=== PATIENT | female | born 1940 | race Hispanic/Latino ===

== ENCOUNTER 2019-04-10 19:08 | Emergency (ER) | payer OTHER ==
[~2019-04-10 19:08] MED LIST: ALBU18HF7 IH; AMLO5TAB9 PO; ASPI-1005 PO; ONDA4TAB10 PO; PRAV20TA4 PO
[2019-04-10] MEDS ORDERED: ASPIRIN 325 MG TABLET ONE (19:17)
[2019-04-10 19:23] LABS: BASOPHILS % (AUTO) 0.3 % (0.0-5.0); HEMATOCRIT 45.9 % (36-48); LYMPHOCYTES % (AUTO) 15.2 % (21.0-51.0); MEAN CORPUSCULAR HEMOGLOBIN 34.3 pg (27.0-33.0); MEAN CORPUSCULAR VOLUME 100.8 fL (79-99); MONOCYTES % (AUTO) 4.1 % (3.0-13.0); NEUTROPHILS % (AUTO) 80.4 % (40.0-77.0); PLATELET COUNT (AUTO) 349 K/uL (130-400); RED BLOOD CELL COUNT(AUTO) 4.56 MIL/uL (4.00-5.50); RED CELL DISTRIBUTION WIDTH 13.6 % (11.0-15.5); WHITE BLOOD COUNT (AUTO) 14.5 K/uL (4.8-10.8)
[2019-04-10 19:41] LABS: CREATININE 0.8 mg/dL (0.5-1.5); INR 1.01 (0.85-1.15); PARTIAL THROMBOPLASTIN TIME 25.1 SEC (26.3-35.5); POTASSIUM 3.5 mmol/L (3.5-5.1); PROTHROMBIN TIME 10.6 SEC (9.6-11.6)
[2019-04-10] MEDS ORDERED: IPRATROPIUM/ALBUTEROL SULFATE 3 ML SOLUTION IH ONE ×2 (19:47→19:55)
[2019-04-10] MEDS ORDERED: METHYLPREDNISOLONE SOD SUCC 125MG/2ML VIAL ONE (19:49)
[2019-04-10 20:01] LABS: ALBUMIN 3.3 g/dL (3.5-5.0); BILIRUBIN,TOTAL 0.5 mg/dL (0.2-1.0); TOTAL PROTEIN, SERUM 8.9 g/dL (6.0-8.3)
== END 2019-04-10 23:52 | disposition home or self-care (01) ==
LOC: EDH 19:08
DX: J44.1 Chronic obstructive pulmonary disease with (acute) exacerbation (principal); R07.89 Other chest pain; Z90.49 Acquired absence of other specified parts of digestive tract; Z98.890 Other specified postprocedural states
CPT/HCPCS: 36415; 71045; 80053; 82550; 83880; 84484 ×2; 85025; 85610; 85730; 93005; 94640 ×2; 96374; 99285; J2930

== ENCOUNTER 2019-04-18 15:36 | Inpatient (IN) | payer OTHER ==
[~2019-04-18] VITALS: Ht 149.9 cm; Wt 50.1 kg
[2019-04-18] MEDS ORDERED: ASPIRIN 325 MG TABLET ONE (16:04)
[2019-04-18 16:25] LABS: HEMATOCRIT 46.7 % (36-48); LYMPHOCYTES % (AUTO) 2.8 % (21.0-51.0); MEAN CORPUSCULAR HGB CONC 34.3 g/dL (32.0-36.0); MONOCYTES % (AUTO) 2.3 % (3.0-13.0); NEUTROPHILS % (AUTO) 94.9 % (40.0-77.0); NUCLEATED RED BLOOD CELLS 0.1 % (0.0-0.19); PLATELET COUNT (AUTO) 265 K/uL (130-400); RED BLOOD CELL COUNT(AUTO) 4.58 MIL/uL (4.00-5.50); WHITE BLOOD COUNT (AUTO) 18.7 K/uL (4.8-10.8)
[2019-04-18] MEDS ORDERED: SODIUM CHLORIDE 0.9% 500ML 500 ML IV ONE ×4 (16:32→20:06)
[2019-04-18 16:48] LABS: INR 1.25 (0.85-1.15); PARTIAL THROMBOPLASTIN TIME 26.6 SEC (26.3-35.5); POTASSIUM 3.5 mmol/L (3.5-5.1)
[2019-04-18] MEDS ORDERED: ONDANSETRON HCL 4 MG/2 ML VIAL ONE (16:50)
[2019-04-18 17:02] LABS: ALBUMIN 3.4 g/dL (3.5-5.0); BILIRUBIN,TOTAL 1.3 mg/dL (0.2-1.0); TOTAL PROTEIN, SERUM 8.3 g/dL (6.0-8.3)
[2019-04-18] MEDS ORDERED: METHYLPREDNISOLONE SOD SUCC 125MG/2ML VIAL ONE (18:03)
[2019-04-18] MEDS ORDERED: ALBUTEROL SULFATE 0.083% 2.5 MG/3 ML INH IH ONE (18:09)
[2019-04-18] MEDS ORDERED: CEFTRIAXONE SODIUM 1 GM ONE (18:36)
[2019-04-18] MEDS ORDERED: SODIUM CHLORIDE 0.9% 100 ML IV ONE (18:36)
[2019-04-18] MEDS ORDERED: IOHEXOL-350 75 ML VIAL IV ONE (18:55)
[2019-04-18 19:10] LABS: APPEARANCE,URINE Clear (CLEAR); BILIRUBIN,URINE Negative (NEGATIVE); COLOR,URINE Yellow (YELLOW); GLUCOSE, URINE (UA) Negative (NEGATIVE); KETONES,URINE Negative (NEGATIVE); LEUKOCYTE ESTERASE ,URINE Negative (NEGATIVE); NITRATE,URINE Negative (NEGATIVE); OCCULT BLOOD,URINE Small (NEGATIVE); PROTEIN,URINE POS 1+ mg/dL (NEGATIVE); UROBILINOGEN,URINE 0.2 mg/dL (0.2-1.0)
[2019-04-18 19:28] LABS: BACTERIA,URINE Rare /HPF (None Seen); WBC,URINE 0-1 /HPF (0-1)
[2019-04-18 19:29] LABS: MUCUS,URINE Few LPF (None Seen); SQUAMOUS EPITHELIAL CELL,UR Few /HPF (0-2)
[2019-04-18] MEDS ORDERED: AZITHROMYCIN 500MG+NS 250ML 250 ML IV ONE (20:04)
[2019-04-18] MEDS ORDERED: IPRATROPIUM/ALBUTEROL SULFATE 3 ML SOLUTION IH ONE (20:11)
[2019-04-18 20:31] LABS: ABG BASE EXCESS -1.5 mmol/L (-2.0-3.0); ABG HCO3 22.8 mmol/L (21.0-28.0); ABG OXYGEN SATURATION 94.6 % (95.0-99.0); ABG PCO2 37 mmHg (32-45)
[2019-04-18] MEDS ORDERED: ACETAMINOPHEN 325 MG TAB PO PRN (22:00)
[2019-04-18] MEDS ORDERED: ONDANSETRON HCL 4 MG/2 ML VIAL IVP PRN (22:00)
[2019-04-19] MEDS ORDERED: METHYLPREDNISOLONE SOD SUCC 40MG/ML 1ML ONE ×5 (00:46→20:10)
[2019-04-19 06:15] LABS: BASOPHILS % (AUTO) 0.1 % (0.0-5.0); HEMATOCRIT 40.9 % (36-48); MEAN CORPUSCULAR HEMOGLOBIN 34.9 pg (27.0-33.0); MEAN CORPUSCULAR HGB CONC 34.5 g/dL (32.0-36.0); MONOCYTES % (AUTO) 0.7 % (3.0-13.0); NEUTROPHILS % (AUTO) 95.2 % (40.0-77.0); NUCLEATED RED BLOOD CELLS 0.1 % (0.0-0.19); PLATELET COUNT (AUTO) 283 K/uL (130-400); RED BLOOD CELL COUNT(AUTO) 4.05 MIL/uL (4.00-5.50); RED CELL DISTRIBUTION WIDTH 12.8 % (11.0-15.5); WHITE BLOOD COUNT (AUTO) 13.1 K/uL (4.8-10.8)
[2019-04-19 06:29] LABS: CREATININE 0.7 mg/dL (0.5-1.5); POTASSIUM 3.5 mmol/L (3.5-5.1)
[2019-04-19 06:33] LABS: BILIRUBIN,TOTAL 0.9 mg/dL (0.2-1.0); TOTAL PROTEIN, SERUM 7.3 g/dL (6.0-8.3)
[2019-04-19] MEDS ORDERED: ENOXAPARIN SODIUM 40 MG/0.4 ML SYRINGE SQ ONE (07:17)
[2019-04-19] MEDS ORDERED: PANTOPRAZOLE SODIUM 40 MG TABLET.DR PO ONE (07:21)
[2019-04-19] MEDS ORDERED: IPRATROPIUM/ALBUTEROL SULFATE 3 ML SOLUTION IH ONE (07:32)
[2019-04-19] MEDS ORDERED: BUDESONIDE 0.25 MG/2 ML INH IH ONE (07:35)
[2019-04-19] MEDS: IPRATROPIUM/ALBUTEROL SULFATE 3 ML SOLUTION IH PRN (07:55)
[2019-04-19] MEDS: PANTOPRAZOLE SODIUM 40 MG TABLET.DR PO SCH (09:00)
[2019-04-19] MEDS: ENOXAPARIN SODIUM 40 MG/0.4 ML SYRINGE SQ SCH (09:00)
[2019-04-19] MEDS ORDERED: ALBU2.5V2 IH (11:18)
[2019-04-19] MEDS ORDERED: GABA-529 PO (11:18)
[2019-04-19] MEDS ORDERED: FLUT1BLS3 IH (11:18)
[2019-04-19] MEDS ORDERED: THEO400T3 PO (11:18)
[2019-04-19] MEDS ORDERED: PRED10TA3 PO (11:18)
[2019-04-19] MEDS ORDERED: DOXY100T2 PO (11:18)
[2019-04-19] MEDS ORDERED: PRED20TA3 PO (11:18)
[2019-04-19] MEDS ORDERED: BENZ-51 PO (11:18)
[2019-04-19] MEDS ORDERED: LEVO750T46 PO (11:18)
[2019-04-19] MEDS: CEFTRIAXONE SODIUM 1 GM IVP SCH (16:00)
[2019-04-19] MEDS: AZITHROMYCIN 500MG+NS 250ML 250 ML IV SCH (17:00)
[2019-04-19] MEDS ORDERED: ASPIRIN 325MG EC TAB 325 MG TABLET.DR PO STA (17:27)
[2019-04-19] MEDS ORDERED: ASPIRIN 325MG EC TAB 325 MG TABLET.DR PO ONE (19:50)
[2019-04-19] MEDS ORDERED: CEFTRIAXONE SODIUM 1 GM ONE (20:11)
[2019-04-19] MEDS ORDERED: AZITHROMYCIN 500MG+NS 250ML 250 ML IV ONE (20:11)
[2019-04-19 20:56] LABS: TROPONIN I 0.14 ng/mL (0.00-0.06)
[2019-04-19] MEDS: METHYLPREDNISOLONE SOD SUCC 40MG/ML 1ML IVP SCH (21:00)
[2019-04-19] MEDS: METOPROLOL TARTRATE 25 MG TAB PO SCH (21:00)
[2019-04-19 23:00] VITALS: BP 168/94
[2019-04-20] MEDS ORDERED: BENZONATATE 100 MG CAPSULE PO PRN (01:15)
[2019-04-20 01:42] LABS: TROPONIN I 0.13 ng/mL (0.00-0.06)
[2019-04-20 04:21] LABS: MEAN CORPUSCULAR HEMOGLOBIN 34.9 pg (27.0-33.0); MEAN CORPUSCULAR HGB CONC 33.8 g/dL (32.0-36.0); MEAN CORPUSCULAR VOLUME 103.1 fL (79-99); PLATELET COUNT (AUTO) 249 K/uL (130-400); RED BLOOD CELL COUNT(AUTO) 4.07 MIL/uL (4.00-5.50); RED CELL DISTRIBUTION WIDTH 13.2 % (11.0-15.5); WHITE BLOOD COUNT (AUTO) 13.9 K/uL (4.8-10.8)
[2019-04-20 04:24] LABS: CREATININE 0.7 mg/dL (0.5-1.5); POTASSIUM 3.4 mmol/L (3.5-5.1)
[2019-04-20 04:44] VITALS: BP 156/71
[2019-04-20 04:58] LABS: LYMPHOCYTES % (MANUAL) 10 % (22-44); MONOCYTES % (MANUAL) 3 % (2-9); SEGMENTED NEUTROPHILS % 87 % (40-70)
[2019-04-20 04:59] LABS: MAN.DIFF COMMENT-IMPRESSION MANUAL DIFFERENTIAL; PLATELET MORPHOLOGY COMMENT ADEQUATE
[2019-04-20] MEDS: IPRATROPIUM/ALBUTEROL SULFATE 3 ML SOLUTION IH PRN ×2 (06:48→18:28)
[2019-04-20 07:41] VITALS: BP 169/90
[2019-04-20 08:02] VITALS: BP 148/89
--- NOTE | 2019-04-20 08:06 | NUR ---
VANE ARNDT, IN ROOM ASSESSING PT. AND SPEAKING WITH PT. AND DAUGHTER AT BEDSIDE RE:PLAN OF CARE.
[2019-04-20] MEDS: GABAPENTIN 100 MG CAPSULE PO SCH ×2 (10:00→21:21)
[2019-04-20] MEDS: METHYLPREDNISOLONE SOD SUCC 40MG/ML 1ML IVP SCH ×2 (10:00→21:21)
[2019-04-20] MEDS: ASPIRIN 325MG EC TAB 325 MG TABLET.DR PO SCH (10:01)
[2019-04-20] MEDS: METOPROLOL TARTRATE 25 MG TAB PO SCH ×2 (10:01→21:21)
[2019-04-20] MEDS: PANTOPRAZOLE SODIUM 40 MG TABLET.DR PO SCH (10:01)
[2019-04-20] MEDS: ENOXAPARIN SODIUM 40 MG/0.4 ML SYRINGE SQ SCH (10:09)
[2019-04-20 12:08] VITALS: BP 137/94
--- NOTE | 2019-04-20 13:05 | NUR ---
D/C PLAN CM spoke to pt regarding d/c planning. Pt lives with daughter named Charmaine . State she has cane, wk, and w/c at home. States family assists in care and denies having a provider or home health. Plan to home. Pt declined short term snf/rehab. CM to f/u. Addendum: 04/20/19 at 1306 by CAROLYN DAMON CM Amended: Links added.
[2019-04-20 15:29] VITALS: BP 135/68
[2019-04-20] MEDS: CEFTRIAXONE SODIUM 1 GM IVP SCH (16:48)
[2019-04-20] MEDS: AZITHROMYCIN 500MG+NS 250ML 250 ML IV SCH (16:48)
--- NOTE | 2019-04-20 18:20 | NUR ---
DR. Jude BRODERICK IN ROOM ASSESSING PT. AND SPEAKING WITH DAUGHTER AT BEDSIDE RE:PLAN OF CARE; QUESTIONS ANSWERED BY DR. BRODERICK.
[2019-04-20] MEDS: BUDESONIDE 0.5 MG/2 ML INH IH SCH (18:28)
[2019-04-20 19:28] VITALS: BP 135/70
[2019-04-20] MEDS: THEOPHYLLINE ANHYDROUS 100 MG CAP.ER.24H PO SCH (21:21)
[2019-04-21] VITALS (7 sets, daily range): BP systolic 118–147; BP diastolic 58–78
[2019-04-21 04:35] LABS: HEMATOCRIT 40.9 % (36-48); MEAN CORPUSCULAR HEMOGLOBIN 34.7 pg (27.0-33.0); MEAN CORPUSCULAR HGB CONC 34.2 g/dL (32.0-36.0); MEAN CORPUSCULAR VOLUME 101.3 fL (79-99); NUCLEATED RED BLOOD CELLS 0.1 % (0.0-0.19); PLATELET COUNT (AUTO) 245 K/uL (130-400); RED BLOOD CELL COUNT(AUTO) 4.04 MIL/uL (4.00-5.50); RED CELL DISTRIBUTION WIDTH 13.3 % (11.0-15.5)
[2019-04-21 05:00] LABS: LYMPHOCYTES % (MANUAL) 3 % (22-44); MAN.DIFF COMMENT-IMPRESSION MANUAL DIFFERENTIAL; MONOCYTES % (MANUAL) 7 % (2-9); PLATELET MORPHOLOGY COMMENT ADEQUATE; SEGMENTED NEUTROPHILS % 90 % (40-70)
[2019-04-21 05:08] LABS: CREATININE 0.7 mg/dL (0.5-1.5); POTASSIUM 3.8 mmol/L (3.5-5.1); TROPONIN I 0.11 ng/mL (0.00-0.06)
[2019-04-21] MEDS: IPRATROPIUM/ALBUTEROL SULFATE 3 ML SOLUTION IH PRN ×2 (06:43→19:04)
[2019-04-21] MEDS: BUDESONIDE 0.5 MG/2 ML INH IH SCH ×2 (06:58→19:04)
[2019-04-21] MEDS: PANTOPRAZOLE SODIUM 40 MG TABLET.DR PO SCH (10:37)
[2019-04-21] MEDS: METOPROLOL TARTRATE 25 MG TAB PO SCH ×2 (10:37→20:38)
[2019-04-21] MEDS: SODIUM CHLORIDE 0.9% 1000ML 1,000 ML IV SCH (10:37)
[2019-04-21] MEDS: METHYLPREDNISOLONE SOD SUCC 40MG/ML 1ML IVP SCH ×2 (10:38→20:38)
[2019-04-21] MEDS: ENOXAPARIN SODIUM 40 MG/0.4 ML SYRINGE SQ SCH (10:38)
[2019-04-21] MEDS: GABAPENTIN 100 MG CAPSULE PO SCH ×2 (10:38→20:38)
[2019-04-21] MEDS: ASPIRIN 325MG EC TAB 325 MG TABLET.DR PO SCH (10:38)
[2019-04-21] MEDS: CEFTRIAXONE SODIUM 1 GM IVP SCH (15:29)
[2019-04-21] MEDS: AZITHROMYCIN 500MG+NS 250ML 250 ML IV SCH (17:08)
[2019-04-21] MEDS: THEOPHYLLINE ANHYDROUS 100 MG CAP.ER.24H PO SCH (20:37)
[2019-04-22 04:06] VITALS: BP 117/62
[2019-04-22 04:28] LABS: HEMATOCRIT 40.5 % (36-48); MEAN CORPUSCULAR HEMOGLOBIN 34.6 pg (27.0-33.0); MEAN CORPUSCULAR HGB CONC 33.7 g/dL (32.0-36.0); MEAN CORPUSCULAR VOLUME 102.5 fL (79-99); RED BLOOD CELL COUNT(AUTO) 3.95 MIL/uL (4.00-5.50); RED CELL DISTRIBUTION WIDTH 13.2 % (11.0-15.5); WHITE BLOOD COUNT (AUTO) 12.9 K/uL (4.8-10.8)
[2019-04-22 04:29] LABS: NUCLEATED RED BLOOD CELLS 0.6 % (0.0-0.19); PLATELET COUNT (AUTO) 225 K/uL (130-400)
[2019-04-22 04:42] LABS: CREATININE 0.7 mg/dL (0.5-1.5); POTASSIUM 3.4 mmol/L (3.5-5.1)
[2019-04-22] MEDS: SODIUM CHLORIDE 0.9% 1000ML 1,000 ML IV SCH (06:33)
[2019-04-22] MEDS: BUDESONIDE 0.5 MG/2 ML INH IH SCH (07:36)
[2019-04-22] MEDS: IPRATROPIUM/ALBUTEROL SULFATE 3 ML SOLUTION IH PRN (07:37)
[2019-04-22 07:53] VITALS: BP 165/93
[2019-04-22] MEDS ORDERED: POTASSIUM CHLORIDE 20 MEQ ERTAB PO PRN (08:00)
[2019-04-22] MEDS ORDERED: POTASSIUM CHLORIDE 20MEQ/100ML 100 ML IV PRN (08:00)
[2019-04-22] MEDS ORDERED: POTASSIUM CHLORIDE 10% ELIXIR 20 MEQ/15 ML UDCUP PO PRN (08:00)
[2019-04-22] MEDS ORDERED: LIDOCAINE HCL-MPF 1% 2ML VIAL IV PRN (08:00)
[2019-04-22] MEDS: PANTOPRAZOLE SODIUM 40 MG TABLET.DR PO SCH (08:54)
[2019-04-22] MEDS: METOPROLOL TARTRATE 25 MG TAB PO SCH (08:54)
[2019-04-22] MEDS: ASPIRIN 325MG EC TAB 325 MG TABLET.DR PO SCH (08:55)
[2019-04-22] MEDS: GABAPENTIN 100 MG CAPSULE PO SCH (08:55)
[2019-04-22] MEDS: ENOXAPARIN SODIUM 40 MG/0.4 ML SYRINGE SQ SCH (08:59)
[2019-04-22] MEDS ORDERED: PREDNISONE 10 MG TABLET PO SCH (09:00)
--- NOTE | 2019-04-22 11:31 | NUR ---
CM NOTE PATIENT APPROACHED REGARDING RECOMMENDATION FOR SNF FOR PHYSICAL THERAPY. PER PATIENT, WOULD LIKE DAUGHTER TO BE PRESENT TO DISCUSS SNF RECOMMENDATION. PER PATIENT AND GRANDDAUGHTER, DAUGHTER WORKS AT FACILITY WHERE SHE IS NOT ALLOWED OUTSIDE CALLS. PER PATIENT, DAUGHTER MIGHT STOP BY NOON BUT IF NOT, SHE WILL BE HERE AFTER 5PM. SNF OPTIONS GIVEN TO PATIENT, PENDING RESPONSE.
[2019-04-22 12:10] VITALS: BP 137/71
--- NOTE | 2019-04-22 14:02 | NUR ---
DC PLAN SPOKE TO PATIENT. SAID OT CALL DAUGHTER SPOKE TO DAUGHTER AND SON SAID OKAY TO [facility]. [employer] SIGNED. INFO SENT TO REP CALLED LET HER KNOW. SENT TO [employer]. CAN GO VIA FACILITY VAN. Addendum: 04/22/19 at 1404 by VINCE STEWART RN CM Amended: Links added.
[2019-04-22 16:03] VITALS: BP 135/70
--- NOTE | 2019-04-22 16:45 | NUR ---
LANIE NANCE SAID ACCEPTED AT 1620. LET NURSE KNOW. VELMA DONE AND CAN GO VIA FACILITY VAN. Addendum: 04/22/19 at 1647 by VINCE STEWART RN CM Amended: Links added.
[2019-04-22] MEDS: CEFTRIAXONE SODIUM 1 GM IVP SCH (17:14)
[2019-04-22] MEDS: AZITHROMYCIN 500MG+NS 250ML 250 ML IV SCH (17:14)
== END 2019-04-22 18:28 | DRG 190 ==
LOC: EDH 15:36 → EDHIP 20:50 → 2AH 04-19 22:57
PROVIDERS: ADMIT Internal Medicine Critical Care Medicine; ATTEND Internal Medicine Critical Care Medicine
DX: J43.9 Emphysema, unspecified (principal); I21.9 Acute myocardial infarction, unspecified; N39.0 Urinary tract infection, site not specified; M62.82 Rhabdomyolysis; J84.10 Pulmonary fibrosis, unspecified; Z87.891 Personal history of nicotine dependence; K76.0 Fatty (change of) liver, not elsewhere classified; M81.0 Age-related osteoporosis without current pathological fracture; E86.0 Dehydration; E87.6 Hypokalemia
CPT/HCPCS: 36415; 36600; 71045; 71275; 80048; 80053; 81001; 82550; 82803; 83874; 83880; 84484; 85025; 85027; 85378; 85610; 85730; 87040; 93005; 93306; 94640; 94664; 97039; 99291; G0378; J0456; J0696; J1650; J2405; J2920; J2930; J7030; J7040; J7512; Q9967

== ENCOUNTER 2019-04-27 20:50 | Emergency (ER) | payer OTHER ==
[~2019-04-27 20:50] MED LIST changes: -ALBU18HF7 IH; +ALBU2.5V2 IH; -AMLO5TAB9 PO; -ASPI-1005 PO; +BENZ-51 PO; +FLUT1BLS3 IH; +GABA-529 PO; -ONDA4TAB10 PO; -PRAV20TA4 PO; +PRED10TA3 PO; +THEO400T3 PO
[2019-04-27 21:29] LABS: CREATININE 0.6 mg/dL (0.5-1.5); POTASSIUM 3.7 mmol/L (3.5-5.1)
[2019-04-27 21:31] LABS: BASOPHILS % (AUTO) 0.9 % (0.0-5.0); HEMATOCRIT 42.6 % (36-48); LYMPHOCYTES % (AUTO) 7.7 % (21.0-51.0); MEAN CORPUSCULAR HEMOGLOBIN 34.8 pg (27.0-33.0); MEAN CORPUSCULAR VOLUME 102.2 fL (79-99); MONOCYTES % (AUTO) 4.1 % (3.0-13.0); NEUTROPHILS % (AUTO) 85.3 % (40.0-77.0); PLATELET COUNT (AUTO) 232 K/uL (130-400); RED BLOOD CELL COUNT(AUTO) 4.17 MIL/uL (4.00-5.50); RED CELL DISTRIBUTION WIDTH 13.2 % (11.0-15.5)
[2019-04-27 21:34] LABS: BILIRUBIN,TOTAL 0.3 mg/dL (0.2-1.0); TOTAL PROTEIN, SERUM 7.2 g/dL (6.0-8.3)
[2019-04-27 21:34] LABS: APPEARANCE,URINE Clear (CLEAR); BILIRUBIN,URINE Negative (NEGATIVE); COLOR,URINE Yellow (YELLOW); GLUCOSE, URINE (UA) Negative (NEGATIVE); KETONES,URINE Negative (NEGATIVE); LEUKOCYTE ESTERASE ,URINE Negative (NEGATIVE); NITRATE,URINE Negative (NEGATIVE); OCCULT BLOOD,URINE Negative (NEGATIVE); PH,URINE 7.5 (5.0-8.0); PROTEIN,URINE Negative (NEGATIVE); UROBILINOGEN,URINE 0.2 mg/dL (0.2-1.0)
== END 2019-04-28 02:06 ==
LOC: EDH 20:50
DX: R41.82 Altered mental status, unspecified (principal); J44.9 Chronic obstructive pulmonary disease, unspecified; Z87.891 Personal history of nicotine dependence
CPT/HCPCS: 36415; 70450; 80053; 81003; 83605; 84484; 85025; 93005